=== PATIENT | female | born 1995 | race American Indian/Alaskan Native ===

== ENCOUNTER 2021-08-28 16:42 | Emergency (ER) | payer OTHER ==
--- NOTE | 2021-08-28 18:11 | Emergency Department Report ---
- General Chief Complaint: Neck Pain/Injury Stated Complaint: SINUS/NECK PAIN Time Seen by Provider: 08/28/21 17:26 Source: patient Mode of arrival: Ambulatory Limitations: No Limitations - History of Present Illness Initial Comments: 26-year-old female presents to ED with complaint sinus infection. Patient states over the last 2 weeks she has been having symptoms of sinus infection, including nasal congestion, facial pain and pressure, cough, fever. Patient states she has a long history of sinus infections. States over the last 2 weeks she has been attempting to use a decongestant, but it has not helped. 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 Patient states since her surgery, over the last 10 years, in the area of her incision on the back of her neck, she has experienced intermittent swelling. Patient shows me a picture when the swelling was present and it was the size of a golf ball. Patient states she had some swelling last week. The swelling has now resolved and is back to normal. She denies any current neck pain. Blood pressure is elevated. States she was told that she had a borderline hypertension. States she has never been on any blood pressure medications. Patient does not have a PCP. Patient reports she received first dose of Moderna vaccine at the beginning of June, but did not return for her second. MD Complaint: nasal congestion, sinus pain -: week(s) (2) Severity: mild Quality: other (Pressure) Consistency: constant Improves With: nothing Worsens With: nothing Associated Symptoms: fever, nasal congestion, cough, shortness of breath Treatments Prior to Arrival: "cold medicine" - Related Data Previous Rx's Medication Instructions Recorded Last Taken Type Amoxicillin/K Clav Tab [Augmentin 1 tab PO Q12HR 7 Days #14 tab 08/28/21 Unknown Rx 875MG TAB] hydroCHLOROthiazide [Hctz] 12.5 mg PO QDAY #30 capsule 08/28/21 Unknown Rx Allergies Allergy/AdvReac Type Severity Reaction Status Date / Time Iodinated Contrast Media AdvReac Rash Verified 08/28/21 17:02 ED Review of Systems ROS: Stated complaint: SINUS/NECK PAIN Other details as noted in HPI Comment: All other systems reviewed and negative Constitutional: fever ENT: congestion, other (Denies loss of smell or taste) Respiratory: cough ED Past Medical Hx - Medications Home Medications: Home Medications Medication Instructions Recorded Confirmed Last Taken Type Amoxicillin/K Clav Tab [Augmentin 1 tab PO Q12HR 7 Days #14 tab 08/28/21 Unknown Rx 875MG TAB] hydroCHLOROthiazide [Hctz] 12.5 mg PO QDAY #30 capsule 08/28/21 Unknown Rx ED Physical Exam - General Limitations: No Limitations General appearance: alert, in no apparent distress, obese - Head Head exam: Present: atraumatic, normocephalic - Eye Eye exam: Present: normal appearance, EOMI - ENT ENT exam: Present: mucous membranes moist, other (sinus tenderness present on exam) - Neck Neck exam: Present: full ROM, other (Scar present midline, posterior neck; no swelling/erythema/ fluctuance present). Absent: tenderness, meningismus - Respiratory Respiratory exam: Present: normal lung sounds bilaterally. Absent: respiratory distress - Cardiovascular Cardiovascular Exam: Present: regular rate, normal rhythm - GI/Abdominal GI/Abdominal exam: Absent: distended - Extremities Exam Extremities exam: Present: normal inspection - Neurological Exam Neurological exam: Present: alert, oriented X3, CN II-XII intact. Absent: motor sensory deficit - Psychiatric Psychiatric exam: Present: normal affect, normal mood - Skin Skin exam: Present: warm, dry, intact, normal color ED Course Vital Signs 08/28/21 08/28/21 08/28/21 17:00 18:20 19:49 Temperature 99.4 F 98.0 F Pulse Rate 98 H 89 Respiratory 22 18 20 Rate Blood Pressure 159/114 162/114 169/111 [Left] O2 Sat by Pulse 100 99 96 Oximetry ED Medical Decision Making - Medical Decision Making 26-year-old female presents to ED with complaint of sinusitis. Patient reports frequent history of sinus infections. She currently reports some nasal congestion with sinus pain and pressure. Patient also reported a knot on the back of her neck that has been intermittent for the last 10 years, currently not present. Patient has no signs of meningismus. Range of motion the neck is normal. Patient will be treated for her sinus infection. Of note, blood pressure is elevated. She reports that she has been told that she has borderline hypertension. Blood pressure may be elevated secondary to decongestants that she reports using, however will still start patient on low- dose HCTZ. Outpatient follow-up advised. - Differential Diagnosis Sinus infection Critical care attestation.: If time is entered above; I have spent that time in minutes in the direct care of this critically ill patient, excluding procedure time. ED Disposition Clinical Impression: Sinusitis, Hypertension Disposition: 01 HOME / SELF CARE / HOMELESS Is pt being admited?: No Condition: Stable Instructions: Sinusitis, Adult, [id number], Hypertension, Adult, Easy-to- Read, Hypertension (ED) Additional Instructions: Please obtain outpatient COVID-19 testing. Quarantine as necessary. Prescriptions: Amoxicillin/K Clav Tab [Augmentin 875MG TAB] 1 tab PO Q12HR 7 Days #14 tab hydroCHLOROthiazide [Hctz] 12.5 mg PO QDAY #30 capsule Referrals: CHERYL TRAN MD [Staff Physician] - 3-5 Days [facility] [Provider Group] - 3-5 Days [facility] [Provider Group] - 3-5 Days Forms: Work/School Release Form(ED) Time of Disposition: 18:21
[2021-08-28 19:51] VITALS: BP 169/111
== END 2021-08-28 19:53 | disposition home or self-care (01) ==
LOC: ED 16:42
DX: J32.9 Chronic sinusitis, unspecified (principal); I10 Essential (primary) hypertension; Z79.899 Other long term (current) drug therapy
CPT/HCPCS: 99282